=== PATIENT | male | born 1960 | race Caucasian/White ===

== ENCOUNTER 2021-09-01 17:11 | Emergency (ER) | payer OTHER ==
[~2021-09-01] VITALS: Ht 182.9 cm; Wt 122.5 kg
--- NOTE | 2021-09-01 17:11 | NUR ---
PT BIBRA 89 C/O DEPRESSION "I FEEL SCARED" REQUESTING PSYCH ADMISSION. PT IS AAOX4, NOT IN RESPIRATORY DISTRESS, V/S STABLE, KEPT RESTED AND COMFORTABLE. WILL CONTINUE TO MONITOR.
[2021-09-01 17:21] VITALS: BP 163/110
--- NOTE | 2021-09-01 19:15 | NUR ---
PT CALLED TO BE PLACED IN ROOM, PT NOT IN WAITING ROOM AREA, PT ALREADY TRIAGE, PT ALREADY SEEN BY ER
--- NOTE | 2021-09-01 19:16 | NUR ---
Patient left without being seen by ER Physician
--- NOTE | 2021-09-01 19:17 | NUR ---
Patient eloped from facility. ER MD notified.
== END 2021-09-01 19:17 | disposition home or self-care (01) ==
LOC: ER 17:23
DX: Z53.21 Procedure and treatment not carried out due to patient leaving prior to being seen by health care provider (principal); F32.9 Major depressive disorder, single episode, unspecified